=== PATIENT | female | born 1980 | race American Indian/Alaskan Native ===

== ENCOUNTER 2022-05-18 07:31 | Day surgery (SDC) | payer BC ==
[2022-05-18] MEDS ORDERED: ceFAZolin/STERILE WATER 2 GM/20 ML SYRINGE IV NR (08:00)
[2022-05-18] MEDS ORDERED: dexAMETHasone 4 MG/ML VIAL ONE (08:11)
[2022-05-18] MEDS ORDERED: BUPIVACAINE/PF (0.5%) 5 MG/1 ML 30 ML VIAL INFILTRATI ONE (08:11)
[2022-05-18] MEDS ORDERED: LACTATED RINGERS 1,000 ML ONE ×2 (08:25→11:13)
--- NOTE | 2022-05-18 08:40 | Anesthesia Day of Surgery ---
Anesthesia Day of Surgery - Day of Surgery Patient Examined: Yes Patient H&P Reviewed: Yes Patient is NPO: Yes
--- NOTE | 2022-05-18 08:41 | Anesthesia Consultation ---
Anesthesia Consult and Med Hx Date of service: 05/18/22 - Airway Anesthetic Teeth Evaluation: Good ROM Head & Neck: Adequate Mental/Hyoid Distance: Adequate Mallampati Class: Class I Intubation Access Assessment: Good - Pre-Operative Health Status ASA Pre-Surgery Classification: ASA2 Proposed Anesthetic Plan: General Nerve Block: IS - Pulmonary Hx Smoking: No Hx Respiratory Symptoms: No (+2FS) Hx Sleep Apnea: No (MARE PRE SCREEN HIGH RISK) - Cardiovascular System Hx Hypertension: Yes (X 5 YRS) - Central Nervous System Hx Psychiatric Problems: No - Gastrointestinal Hx Gastroesophageal Reflux Disease: No - Endocrine Hx Non-Insulin Dependent Diabetes: Yes - Hematic Hx Anemia: Yes (NOT RECENT , LOW IRON LEVELS) Hx Sickle Cell Disease: No - Other Systems Hx Cancer: No Hx Obesity: Yes
[2022-05-18] MEDS ORDERED: ONDANSETRON 4 MG/2 ML INJ IV PRN (09:00)
[2022-05-18] MEDS ORDERED: MIDAZOLAM 2 MG/2 ML INJ IV NR (09:00)
[2022-05-18] MEDS ORDERED: fentaNYL 100 MCG/2 ML INJ IV SCH (09:00)
[2022-05-18] MEDS ORDERED: HYDROmorphone 0.5 MG/0.5 ML INJ IV PRN ×2 (09:00)
[2022-05-18] MEDS ORDERED: LACTATED RINGERS 1,000 ML IV SCH (09:00)
[2022-05-18] MEDS ORDERED: EPINEPHrine/PF 1 MG/1 ML INJ ONE (09:14)
[2022-05-18] MEDS ORDERED: LIDOCAINE MPF (2%) 20 MG/1 ML VIAL 5 ML ONE (09:16)
[2022-05-18] MEDS ORDERED: ONDANSETRON 4 MG/2 ML INJ ONE (09:16)
[2022-05-18] MEDS ORDERED: fentaNYL 100 MCG/2 ML INJ ONE (09:16)
[2022-05-18] MEDS ORDERED: propofoL 200 MG/20 ML VIAL IV ONE (09:17)
[2022-05-18] MEDS ORDERED: ROCURONIUM 50 MG/5 ML INJ IV ONE (09:17)
[2022-05-18] MEDS ORDERED: BUPIVACAINE/PF (0.25%) 2.5 MG/ML 10 ML VIAL INFILTRATI ONE (10:07)
[2022-05-18] MEDS ORDERED: EPINEPHrine/PF 1 MG/1 ML INJ IV ONE (10:24)
[2022-05-18] MEDS ORDERED: SODIUM CHLORIDE 0.9% IRRIG SOLN 2000 ML IR ONE ×2 (10:24)
[2022-05-18] MEDS ORDERED: NEOSTIGMINE 10MG/10 ML INJ MDV ONE (10:57)
[2022-05-18] MEDS ORDERED: GLYCOPYRROLATE 0.4 MG/2 ML INJ ONE (10:57)
--- NOTE | 2022-05-18 11:17 | Discharge Summary ---
Short Stay Discharge Plan Weight Bearing Status: Weight Bear as Tolerated Diet: regular Wound: change dressing (In two days may remove dressing), other (Keep arm in sling except when showering) Follow up with: DR CHASIDY [Other] - 7 Days LAURA KAPADIA II, MD [Staff Physician] - 14 Days
--- NOTE | 2022-05-18 11:22 | Operative Report ---
Operative Report Operative Report: Preop diagnosis: Left shoulder impingement and partial-thickness tear of the rotator cuff Postop diagnosis: Same Procedure performed: Left shoulder arthroscopic debridement and subacromial decompression Surgeon: Jose Brooks MD Anesthesia: General Preop medications: Ancef 2 g Tourniquet time: Not applicable EBL: Less than 5 cc Indications: 41-year-old female with refractory pain in the left shoulder. Evaluation work-up were suggestive for left shoulder impingement and was recommended patient undergo surgical management after failing conservative treatment. The risks and benefits of the limitations of surgery were discussed with patient including but infection injury nerves or blood vessels need for reoperation and patient agreed and consented to undergo surgery. Examination under anesthesia: Full range of motion with no instability Operative findings: Low-grade partial-thickness tear of the rotator cuff estimated be approximately 10% thickness, intra-articular synovitis, subacromial bursitis Technique: In the preop holding area the site was marked with a surgical marking pen. The patient was brought to the operating room and prepped and draped in a sterile fashion in a beachchair position. Standard posterior portal was placed and diagnostic arthroscopy was performed. There was noted to be intra-articular synovitis which was debrided. 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 The biceps tendon and superior and anterior labrum's appear to be normal. Rotator cuff was visualized there was noted to be a partial-thickness tear which was debrided using oscillating shaver. The tear was estimated be about 10% thickness and therefore there was no indication for repair. The scope was then placed into the subacromial space where bursectomy and arthroscopic acromioplasty was performed. Extensive debridement of the subacromial space was performed due to the significant bursal inflammation. A decompression was performed removing about 5 mm of the undersurface of the acromion. The arthroscope was then removed and the incisions were closed with 3-0 nylon. A sterile dressing was applied and patient was awakened taken to recovery in stable condition. Postop plan patient will be in a sling for 2 weeks we will work with physical therapy work on range of motion exercises. We will see the patient back for follow-up visit in 2 weeks time for suture removal.
[2022-05-18 14:02] VITALS: BP 143/84
--- NOTE | 2022-05-18 17:57 | Post Anesthesia Evaluation ---
- Post Anesthesia Evaluation Patient Participated: Yes Airway Patent: Yes Stable Respiratory Function: Yes Nausea/Vomiting: No Temp > 96.8F: Yes Pain Manageable: Yes Adequeate Hydration: Yes Anesthesia Complications: No Block Receding Appropriately: Not Applicable Patient on Ventilator: No
== END 2022-05-18 12:48 | disposition home or self-care (01) ==
LOC: OR 07:31
PROVIDERS: ATTEND Orthopaedic Surgery Sports Medicine
DX: M75.42 Impingement syndrome of left shoulder (principal); M75.102 Unspecified rotator cuff tear or rupture of left shoulder, not specified as traumatic; I10 Essential (primary) hypertension; E66.9 Obesity, unspecified; E11.9 Type 2 diabetes mellitus without complications; D64.9 Anemia, unspecified; Z88.8 Allergy status to other drugs, medicaments and biological substances; Z79.4 Long term (current) use of insulin; Z79.899 Other long term (current) drug therapy; Z98.890 Other specified postprocedural states; Z68.36 Body mass index [BMI] 36.0-36.9, adult
CPT/HCPCS: 29823; 29826; 36415; 64415; 82962; 84132; J0171; J0690; J1100; J1815; J2250; J2405; J2704; J2710; J3010; J3490; J7120